=== PATIENT | female | born 1995 | race Caucasian/White ===

== ENCOUNTER 2021-08-02 09:04 | Emergency (ER) | payer BC ==
[~2021-08-02] VITALS: Ht 167.6 cm; Wt 72.7 kg
[2021-08-02] MEDS ORDERED: BIRTH CONTROL (09:35)
[2021-08-02 10:18] LABS: BASO # 0.01 K/mm3 (0.02-0.10); HEMATOCRIT 39.2 % (37.0-47.0); HEMOGLOBIN 13.5 g/dL (12.5-16.0); LYMPH# 0.65 K/mm3 (1.50-4.00); MEAN CELL VOLUME 85 fl (78-100); MEAN CORPUSCULAR HEMOGLOBIN 29 pg (27-31); MEAN CORPUSCULAR HGB CONC 34 g/dL (33-37); MEAN PLATELET VOLUME 10.2 fl (7.4-10.4); MONO # 0.36 K/mm3 (0.20-0.80); NEU # 15.05 K/mm3 (1.40-6.50); PLATELET COUNT 328 K/mm3 (130-400); RED CELL DISTRIBUTION WIDTH 11.7 % (11.5-14.5); WHITE BLOOD COUNT 16.1 K/mm3 (4.8-10.8)
[2021-08-02 10:37] LABS: ALBUMIN 4.8 g/dL (3.5-5.0)
[2021-08-02 10:38] LABS: POTASSIUM 3.2 mmol/L (3.5-5.1)
[2021-08-02 10:39] LABS: CALCIUM 9.9 mg/dL (8.3-10.5)
[2021-08-02 10:40] LABS: TOTAL PROTEIN 8.6 g/dL (6.4-8.3)
[2021-08-02 10:42] LABS: TOTAL BILIRUBIN 1.2 mg/dL (0.2-1.2)
[2021-08-02 11:13] LABS: PH-URINE 7.5 (5.0 - 8.0); URINE APPEARANCE CLOUDY; URINE BILIRUBIN NEGATIVE (NEGATIVE); URINE BLOOD NEGATIVE (NEGATIVE); URINE COLOR YELLOW; URINE GLUCOSE 50 mg/dL (NEGATIVE); URINE KETONE 3+ (NEGATIVE); URINE LEUKOCYTE ESTERASE TRACE (NEGATIVE); URINE NITRATE NEGATIVE (NEGATIVE); URINE PROTEIN(semi-quant) TRACE (NEGATIVE); URINE UROBILINOGEN NORMAL (NORMAL)
[2021-08-02 11:14] LABS: URINE MUCUS PRESENT (NOT PRESENT)
[2021-08-02] MEDS ORDERED: DROSPIRENONE-E1 EACH PO (13:02)
[2021-08-02 14:22] VITALS: BP 112/72
== END 2021-08-02 14:22 | disposition short-term general hospital (02) ==
LOC: ED 09:04
PROVIDERS: Nurse Practitioner Family
DX: R05.9 Cough, unspecified (principal)
CPT/HCPCS: J2405; J3010; J7030; Q9967

== ENCOUNTER 2024-03-03 05:25 | Emergency (ER) | payer OTHER ==
[~2024-03-03] VITALS: Wt 73.6 kg
[~2024-03-03 05:25] MED LIST: BIRTH CONTROL; DROSPIRENONE-E1 EACH PO
[2024-03-03] MEDS ORDERED: PRENATAL FORMU1 EAC3 PO (05:35)
[2024-03-03] MEDS ORDERED: ZYRTEC10 M3 PO (05:36)
[2024-03-03] MEDS ORDERED: VITAMIN B650 M1 PO (05:37)
[2024-03-03] MEDS ORDERED: UNISOM SLEEPGEL50 MG PO (05:38)
[2024-03-03] MEDS ORDERED: NS 1,000 ML IV ONE (06:15)
[2024-03-03] MEDS ORDERED: Promethazine 50 MG/ML 1 ML VIAL IM ONE (06:15)
[2024-03-03] MEDS ORDERED: NS 1,000 ML IV SCH (06:15)
[2024-03-03 06:16] LABS: BASO # 0.03 K/mm3 (0.02-0.10); EOS # 0.02 K/mm3 (0.04-0.40); EOS % 0.2 % (1.0-5.0); HEMATOCRIT 40.5 % (37.0-47.0); HEMOGLOBIN 13.7 g/dL (12.5-16.0); LYMPH# 1.74 K/mm3 (1.50-4.00); MEAN CELL VOLUME 86 fl (78-100); MEAN CORPUSCULAR HEMOGLOBIN 29 pg (27-31); MEAN CORPUSCULAR HGB CONC 34 g/dL (33-37); MEAN PLATELET VOLUME 9.4 fl (7.4-10.4); MONO # 0.37 K/mm3 (0.20-0.80); NEU # 9.84 K/mm3 (1.40-6.50); PLATELET COUNT 303 K/mm3 (130-400); RED BLOOD COUNT 4.69 M/mm3 (4.10-5.30); RED CELL DISTRIBUTION WIDTH 11.9 % (11.5-14.5)
[2024-03-03 06:23] LABS: ALBUMIN 4.3 g/dL (3.5-5.0); CALCIUM 9.7 mg/dL (8.3-10.5)
[2024-03-03 06:26] LABS: TOTAL BILIRUBIN 0.7 mg/dL (0.2-1.2); TOTAL PROTEIN 7.4 g/dL (6.4-8.3)
[2024-03-03] MEDS ORDERED: REGLAN5 M1 PO (07:14)
[2024-03-03 07:30] LABS: PH-URINE 8.5 (5.0 - 8.0); URINE APPEARANCE CLOUDY (CLEAR); URINE BILIRUBIN NEGATIVE (NEGATIVE); URINE COLOR YELLOW (YELLOW); URINE GLUCOSE NEGATIVE (NEGATIVE); URINE KETONE TRACE (NEGATIVE); URINE PROTEIN(semi-quant) 1+ (NEGATIVE)
[2024-03-03 07:31] LABS: URINE BLOOD NEGATIVE (NEGATIVE); URINE LEUKOCYTE ESTERASE NEGATIVE (NEGATIVE); URINE MUCUS PRESENT (NOT PRESENT); URINE NITRATE NEGATIVE (NEGATIVE)
[2024-03-03 07:36] VITALS: BP 132/79
== END 2024-03-03 07:37 | disposition home or self-care (01) ==
LOC: ED 05:25
PROVIDERS: Family Medicine
DX: O99.611 Diseases of the digestive system complicating pregnancy, first trimester (principal); A08.4 Viral intestinal infection, unspecified; Z3A.10 10 weeks gestation of pregnancy; Z87.891 Personal history of nicotine dependence
CPT/HCPCS: J2765; J7030